=== PATIENT | female | born 1955 | race Two or more races ===

== ENCOUNTER 2022-09-16 17:54 | Emergency (ER) | payer OTHER ==
[~2022-09-16] VITALS: Ht 152.4 cm; Wt 46.0 kg
[2022-09-16 18:15] VITALS: BP 120/70
[2022-09-16] MEDS ORDERED: HYDROcodone-ACET 10/325MG TAB PO ONE (20:45)
== END 2022-09-17 00:28 | disposition home or self-care (01) ==
LOC: ER 17:54
DX: S09.90XA Unspecified injury of head, initial encounter (principal); R51.9 Headache, unspecified; Z88.0 Allergy status to penicillin; Z88.2 Allergy status to sulfonamides; Z91.040 Latex allergy status; W18.39XA Other fall on same level, initial encounter; Y93.89 Activity, other specified; Y92.89 Other specified places as the place of occurrence of the external cause; Y99.8 Other external cause status
CPT/HCPCS: 70450

== ENCOUNTER 2024-03-15 15:56 | Emergency (ER) | payer OTHER ==
[~2024-03-15] VITALS: Ht 154.9 cm; Wt 49.0 kg
[2024-03-15 16:01] VITALS: TEMP 99.3
[2024-03-15] MEDS: ONDANSETRON ODT 4 MG TAB PO ONE (19:52)
[2024-03-15] MEDS: MORPHINE SULFATE INJ 2 MG/ml SYRG IM ONE (20:00)
[2024-03-15 20:35] VITALS: O2SAT 97
[2024-03-15 20:44] VITALS: BP 121/73; PULSE 90; RESP 16
== END 2024-03-15 20:44 | disposition home or self-care (01) ==
LOC: EDSEX 15:56 → EDBD 15:56 → ER 16:06
DX: S16.1XXA Strain of muscle, fascia and tendon at neck level, initial encounter (principal); S46.912A Strain of unspecified muscle, fascia and tendon at shoulder and upper arm level, left arm, initial encounter; S00.01XA Abrasion of scalp, initial encounter; E11.9 Type 2 diabetes mellitus without complications; I10 Essential (primary) hypertension; W01.0XXA Fall on same level from slipping, tripping and stumbling without subsequent striking against object, initial encounter; Y93.89 Activity, other specified; Y92.89 Other specified places as the place of occurrence of the external cause; Y99.8 Other external cause status
CPT/HCPCS: 70450; 72125; 73030; 96372; 99285; J2270; Q0162